=== PATIENT | male | born 1970 | race Caucasian/White ===

== ENCOUNTER 2021-04-09 15:52 | Emergency (ER) | payer BC ==
[2021-04-09] MEDS ORDERED: Sodium Chloride 0.9% 10 ML Syringe FLUSH PRN (16:51)
[2021-04-09] MEDS ORDERED: HYDROmorphone 1 MG/ML Syringe IVPUSH ONE (16:53)
--- NOTE | 2021-04-09 16:58 | EDM.PDOC ---
ED HPI GENERAL MEDICAL PROBLEM - General Chief Complaint: Upper Extremity Injury/Pain Stated Complaint: POSSIBLE DISLOCATED SHOULDER Time Seen by Provider: 04/09/21 16:54 Source of Information: Reports: Patient History Limitations: Reports: No Limitations - History of Present Illness INITIAL COMMENTS - FREE TEXT/NARRATIVE: pt was grilling steaks and went out to check them and fell down the stairs and landed on the rt shoulder. He is having alot of pain in shoulder. Onset: Today, Sudden Duration: Hour(s): Location: Reports: Upper Extremity, Right Associated Symptoms: Reports: No Other Symptoms Right Shoulder Pain Score (Numeric/FACES): 10 - Related Data Allergies Allergy/AdvReac Type Severity Reaction Status Date / Time No Known Allergies Allergy Verified 04/09/21 16:50 Home Meds: Home Meds NK [No Known Home Meds] 04/09/21 [History] Past Medical History Musculoskeletal History: Reports: Fracture Social & Family History - Tobacco Use Tobacco Use Status *Q: Heavy Tobacco User Years of Tobacco use: 35 Packs/Tins Daily: 1.5 - Caffeine Use Caffeine Use: Reports: Coffee - Alcohol Use Days Per Week of Alcohol Use: 4 Number of Drinks Per Day: 3 Total Drinks Per Week: 12 - Recreational Drug Use Recreational Drug Use: No Review of Systems - Review of Systems Review Of Systems: See Below Constitutional: Reports: No Symptoms Ears: Reports: No Symptoms Nose: Reports: No Symptoms Mouth/Throat: Reports: No Symptoms Respiratory: Reports: No Symptoms Cardiovascular: Reports: No Symptoms GI/Abdominal: Reports: No Symptoms Genitourinary: Reports: No Symptoms Musculoskeletal: Reports: No Symptoms Skin: Reports: No Symptoms Neurological: Reports: No Symptoms Psychiatric: Reports: Anxiety ED EXAM, GENERAL - Physical Exam Exam: See Below Free Text/Narrative:: pt fell on the steps and he landed on the lrt shoulder. He is very uncomfortable. Exam Limited By: No Limitations General Appearance: Alert, Anxious, Moderate Distress Ears: Normal TMs Nose: Normal Inspection Throat/Mouth: Normal Inspection Head: Atraumatic Neck: Normal Inspection Respiratory/Chest: No Respiratory Distress Cardiovascular: Regular Rate, Rhythm GI/Abdominal: Soft, Non-Tender (Male) Exam: Deferred Rectal (Males) Exam: Deferred Back Exam: Normal Inspection Extremities: Other (rt shoulder appears deformed and is very tender to palpate. ) Neurological: Normal Cognition Psychiatric: Normal Affect Course - Vital Signs Last Recorded V/S: Last Vital Signs Temp 36.6 C 04/09/21 16:37 Pulse 74 04/09/21 17:44 Resp 14 04/09/21 17:44 BP 155/86 H 04/09/21 17:44 Pulse Ox 99 04/09/21 17:44 - Orders/Labs/Meds Orders: Active Orders 24 hr Category Date Time Status Shoulder 1V Rt [CR] Stat Exams 04/09/21 17:30 Taken Shoulder Comp Rt [CR] Stat Exams 04/09/21 16:52 Taken Sodium Chloride 0.9% [Saline Flush] Med 04/09/21 16:51 Active 10 ml FLUSH ASDIRECTED PRN Saline Lock Insert [OM.PC] Routine Oth 04/09/21 16:51 Ordered Medication Orders Sodium Chloride (Sodium Chloride 0.9% 10 Ml Syringe) 10 ml FLUSH ASDIRECTED PRN PRN Reason: Keep Vein Open Last Admin: 04/09/21 17:07 Dose: 10 ml Documented by: ERIC Hendrixs: Medications Generic Name Dose Route Start Last Admin Trade Name Freq PRN Reason Stop Dose Admin Sodium Chloride 10 ml 04/09/21 16:51 04/09/21 17:07 Sodium Chloride 0.9% 10 Ml Syringe FLUSH 10 ml ASDIRECTED PRN Administration Keep Vein Open Discontinued Medications Generic Name Dose Route Start Last Admin Trade Name Freq PRN Reason Stop Dose Admin Hydromorphone HCl 1 mg 04/09/21 16:53 04/09/21 17:06 Hydromorphone 1 Mg/Ml Syringe IVPUSH 04/09/21 16:54 1 mg ONETIME ONE Administration Propofol Confirm 04/09/21 17:42 Propofol 200 Mg/20 Ml Sdv Administered 04/09/21 17:43 Dose 200 mg .ROUTE .STK-MED ONE - Re-Assessments/Exams Free Text/Narrative Re-Assessment/Exam: 04/09/21 17:07 pt had a steak meal at about 2 thirty -three oclock He fell on the steps and landed on his rt shoulder. He is having alot of pain in the shoulder. Xray revea a dislocated rt shoulder. 04/09/21 17:37 Vasquez from anesthesia used concious sedation andwith slight difficulty the shoul vasu was put back in place. Pt will be recovered. He will have a imbolizer applied. 04/09/21 18:11 pt did well with very little pain Departure - Departure Time of Disposition: 18:11 Disposition: Home, Self-Care 01 Condition: Fair Clinical Impression: Dislocated shoulder - Discharge Information Referrals: PCP,None [Primary Care Provider] - Forms: ED Department Discharge Care Plan Goals: shoulder imbolizer for the next 2-3 days and then a sling, tylenol and motrin for discomfort. Sepsis Event Note (ED) - Focused Exam Vital Signs: Vital Signs Temp Pulse Resp BP Pulse Ox 04/09/21 17:44 74 14 155/86 H 99 04/09/21 16:37 36.6 C 68 18 153/78 H 99 - My Orders Last 24 Hours: My Active Orders 04/09/21 16:51 Sodium Chloride 0.9% [Saline Flush] 10 ml FLUSH ASDIRECTED PRN Saline Lock Insert [OM.PC] Routine 04/09/21 16:52 Shoulder Comp Rt [CR] Stat 04/09/21 17:30 Shoulder 1V Rt [CR] Stat - Assessment/Plan Last 24 Hours: My Active Orders 04/09/21 16:51 Sodium Chloride 0.9% [Saline Flush] 10 ml FLUSH ASDIRECTED PRN Saline Lock Insert [OM.PC] Routine 04/09/21 16:52 Shoulder Comp Rt [CR] Stat 04/09/21 17:30 Shoulder 1V Rt [CR] Stat
[2021-04-09] MEDS ORDERED: Propofol 200 MG/20 ML SDV ONE (17:42)
--- NOTE | 2021-04-11 11:11 | CR ---
Shoulder Comp Rt, CLINICAL HISTORY: Fall, pain FINDINGS: There is an anterior dislocation of the humeral head. No acute fractures identified. There are degenerative changes in the AC joint Impression: Anterior dislocation of the right humerus Shoulder 1V Rt CLINICAL HISTORY: Reduction of dislocation FINDINGS: There is been reduction of the previously described glenohumeral dislocation. There is a concavity along the superior lateral humeral head. 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
== END 2021-04-09 18:59 | disposition home or self-care (01) ==
LOC: JP.ED 15:52
DX: S43.014A Anterior dislocation of right humerus, initial encounter (principal); Z72.0 Tobacco use; W10.9XXA Fall (on) (from) unspecified stairs and steps, initial encounter
CPT/HCPCS: 23650; 73020; 73030; 96374; 99283; J1170; J2704

== ENCOUNTER 2023-01-26 08:57 | Day surgery (SDC) | payer BC, OTHER ==
[2023-01-26] MEDS ORDERED: Lactated Ringers 1,000 ML IV SCH (09:30)
[2023-01-26] MEDS ORDERED: Propofol 200 MG/20 ML SDV ONE ×2 (09:32→11:52)
[2023-01-26] MEDS ORDERED: Midazolam 1 MG/ML 2 ML SDV ONE (09:32)
[2023-01-26] MEDS ORDERED: fentaNYL 50 MCG/ML SDV ONE (09:32)
== END 2023-01-26 13:07 | disposition home or self-care (01) ==
LOC: JP.SDS 08:57
PROVIDERS: ATTEND Student in an Organized Health Care Education/Training Program
DX: D12.3 Benign neoplasm of transverse colon (principal); K57.30 Diverticulosis of large intestine without perforation or abscess without bleeding; E66.9 Obesity, unspecified; F17.200 Nicotine dependence, unspecified, uncomplicated; Z68.35 Body mass index [BMI] 35.0-35.9, adult
CPT/HCPCS: 45380; J2250; J2704; J3010; J7120